=== PATIENT | female | born 1945 | race American Indian/Alaskan Native ===

== ENCOUNTER 2019-08-29 18:12 | Emergency (ER) | payer OTHER ==
[2019-08-29 18:27] VITALS: BP 137/70
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
== END 2019-08-29 19:09 | disposition home or self-care (01) ==
LOC: ED 18:12
DX: M79.606 Pain in leg, unspecified (principal); V49.49XA Driver injured in collision with other motor vehicles in traffic accident, initial encounter; Y93.89 Activity, other specified; Y92.410 Unspecified street and highway as the place of occurrence of the external cause; Y99.8 Other external cause status